=== PATIENT | male | born 1970 | race Two or more races ===

== ENCOUNTER 2017-08-11 09:17 | Inpatient (IN) | payer OTHER ==
[2017-08-11 09:44] VITALS: BMI 24.3
--- NOTE | 2017-08-11 14:38 | HP ---
COWS - Scale Resting Pulse: 1= [place] 81-100 Sweatin= Chills/Flushing Restless Observation: 3= Extraneous Movement Pupil Size: 2= Moderately Dilated Bone or Joint Aches: 4=Acute Joint/Muscle Pain Runny Nose/ Eye Tearin= Runny Nose/Eyes GI Upset > 30mins: 3= Vomiting/Diarrhea Tremor Observation: 1= Tremor [place], Not Seen Yawning Observation: 0= None Anxiety or Irritability: 2=Irritable/Anxious Goose Flesh Skin: 0=Smooth Skin COWS Score: 19 Admission ROS S - HPI Chief Complaint: WITHDRAWAL SX FROM HEROIN Allergies/Adverse Reactions: Allergies Allergy/AdvReac Type Severity Reaction Status Date / Time No Known Allergies Allergy Verified 08/11/17 11:17 History of Present Illness: 46 Y/O H/M WITH A HX OF HEROIN DEPENDENCE SEEKING DETOX TX. PT WAS REFERRED TO DETOX FROM [facility] WHERE HE HAD BEEN EARLIER TODAY. HX OF HEP C AND HIV + WITH NO MEDS. REPORTS PMD IS DR EMILY MADSEN AT [address] [place], [place]. 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 Loss EENT: reports: Blurred Vision, Tearing, Nose Congestion, Dental Problems ( MISSING TEETH) Respiratory: reports: No Symptoms reported Cardiac: reports: Lightheadedness GI: reports: Diarrhea, Nausea, Poor Appetite, Poor Fluid Intake, Vomiting : reports: Dysuria Musculoskeletal: reports: Back Pain, Joint Pain, Muscle Pain Integumentary: reports: Bruising (IVD INJ. SITES ON BOTH ELBOWS) Neuro: reports: Headache, Tremors, Dizziness Endocrine: reports: No Symptoms Reported Hematology: reports: No Symptoms Reported Psychiatric: reports: Orientated x3 (ALERT ORIENTED TO SELF.), Anxious Other Systems: Reviewed and Negative Patient History - Patient Medical History Hx Anemia: No Hx Asthma: No Hx Chronic Obstructive Pulmonary Disease (COPD): No Hx Cardiac Disorders: No Hx Hypertension: No Hx Hypercholesterolemia: No HX Cerebrovascular Accident: No Hx Seizures: No Hx Diabetes: Yes (Insulin) Hx Gastrointestinal Disorders: No Hx Genitourinary Disorders: No Hx Sexually Transmitted Disorders: No Hx Renal Disease (ESRD): No Hx Thyroid Disease: No Hx Human Immunodeficiency Virus (HIV): Yes (NO MEDS) Hx Hepatitis C: Yes (NOT TREATED) Hx Depression: Yes (ON MEDS) Hx Suicide Attempt: Yes (Tried to cut himself 5 yrs ago;DENIES CURRENT S/H/I) Hx Schizophrenia: No - Patient Surgical History Past Surgical History: No Hx Neurologic Surgery: No Hx Cataract Extraction: No Hx Cardiac Surgery: No Hx Lung Surgery: No Hx Breast Surgery: No Hx Breast Biopsy: No Hx Abdominal Surgery: No Hx Appendectomy: No Hx Cholecystectomy: No Hx Genitourinary Surgery: No Hx Orthopedic Surgery: No Anesthesia Reaction: No - PPD History Previous Implant?: Yes Documented Results: Negative w/o proof Implanted On Prior [facility] Admission?: No - Reproductive History Patient is a Female of Child Bearing Age (11 -55 yrs old): No (MALE) - Smoking Cessation Smoking history: Current every day smoker Have you smoked in the past 12 months: Yes Aproximately how many cigarettes per day: 20 Hx Chewing Tobacco Use: No Initiated information on smoking cessation: Yes 'Breaking Loose' booklet given: 08/11/17 - Substance & Tx. History Hx Alcohol Use: No Hx Substance Use: Yes (HEROIN) Substance Use Type: Heroin Hx Substance Use Treatment: Yes (PREVIOUS [place] [facility]) - Substances Abused Heroin Route: Injection Frequency: Daily Amount used: 20 bags Age of first use: 29 Date of Last Use: 08/10/17 Family Disease History - Family Disease History Family History: Denies Admission Physical Exam BHS - Vital Signs Vital Signs: Vital Signs - 24 hr 08/11/17 09:43 Temperature 97.1 F L Pulse Rate 83 Respiratory 20 Rate Blood Pressure 101/68 - Physical General Appearance: Yes: Moderate Distress, Irritable, Anxious HEENTM: Yes: EOMI, Normocephalic, BRETT, Pharynx Normal Respiratory: Yes: Chest Non-Tender, Lungs Clear, Normal Breath Sounds, No Respiratory Distress Neck: Yes: No masses,lesions,Nodules, Supple, Trachea in good position Breast: Yes: Breast Exam Deferred Cardiology: Yes: Regular Rhythm, Regular Rate, S1, S2 Abdominal: Yes: Normal Bowel Sounds, Non Tender, Flat, Soft Genitourinary: Yes: Other (N/C) Musculoskeletal: Yes: full range of Motion, Gait Steady Extremities: Yes: Normal Range of Motion, Non-Tender Neurological: Yes: pearler II-XII NML intact, Fully Oriented (TO SELF.), Alert, Motor Strength 5/5 Integumentary: Yes: Normal Color, Dry, Warm Lymphatic: Yes: Within Normal Limits - Diagnostic (1) Opioid dependence with withdrawal Current Visit: Yes Status: Acute (2) Diabetes mellitus Current Visit: Yes Status: Chronic (3) History of hepatitis C Current Visit: Yes Status: Chronic (4) HIV (human immunodeficiency virus infection) Current Visit: Yes Status: Chronic Comment: NO MEDS Cleared for Admission [facility] - Detox or Rehab [facility] Level of Care: Medically Managed Detox Regimen/Protocol: Methadone [facility] Breath Alcohol Content Breath Alcohol Content: 0 Urine Drug Screen - Results Drug Screen Negative: No Urine Drug Screen Results: THC-Marijuana, OPI-Opiates, BZO-Benzodiazepines
[2017-08-11] MEDS ORDERED: LOPERAMIDE HCL 2 MG CAPSULE PO PRN (14:56)
[2017-08-11] MEDS ORDERED: MENTHOL/PHENOL 1 EACH UD MM PRN (14:56)
[2017-08-11] MEDS ORDERED: NICOTINE POLACRILEX 4 MG GUM BUC PRN (14:56)
[2017-08-11] MEDS ORDERED: MAGNESIUM HYDROX 2400MG/30ML ORAL SUSPENSION 30 ML CUP PO PRN (14:56)
[2017-08-11] MEDS ORDERED: P-EPHED 60MG/TRIPROLIDI 2.5MG TABLET PO PRN (14:56)
[2017-08-11] MEDS ORDERED: MAGNESIUM CITRATE 300 ML BOTTLE PO PRN (14:56)
[2017-08-11] MEDS ORDERED: ACETAMINOPHEN 325 MG TABLET (FP) PO PRN (14:56)
[2017-08-11] MEDS ORDERED: MAG HYDROX/AL HYDROX/SIMETH 30 ML UNIT-DOSE CUP PO PRN (14:56)
[2017-08-11] MEDS ORDERED: METHADONE HCL 10 MG TABLET (FOR DETOX USE ONLY) PO ONE ×2 (15:35→23:00)
[2017-08-11] MEDS: diazePAM 5 MG TABLET PO PRN ×2 (15:40→21:13)
[2017-08-11] MEDS: NICOTINE 21 MG/24 HOURS TOPICAL PATCH TD SCH (15:58)
[2017-08-11] MEDS: INSULIN SLIDING SCALE (NOVOLOG) 1 VIAL SQ SCH (17:14)
[2017-08-11] MEDS: guaiFENesin/D-METHORPHAN HB 10 ML UNIT-DOSE CUPS PO PRN (19:01)
[2017-08-11] MEDS: hydrOXYzine PAMOATE 50 MG CAPSULE (FP) PO PRN (19:01)
[2017-08-11] MEDS: IBUPROFEN 400 MG TABLET (FP) PO PRN (19:01)
[2017-08-11] MEDS: CYCLOBENZAPRINE HCL 10 MG TABLET (FP) PO SCH (21:13)
[2017-08-11] MEDS: THIAMINE HCL 100 MG TABLET (FP) PO SCH (21:13)
[2017-08-11] MEDS: INSULIN DETEMIR 100 UNITS/ML MDV SQ SCH (22:05)
[2017-08-11 23:58] LABS: URINE APPEARANCE CLEAR; URINE BILIRUBIN NEGATIVE (NEGATIVE); URINE BLOOD NEGATIVE (NEGATIVE); URINE COLOR YELLOW; URINE GLUCOSE (UA) NEGATIVE (NEGATIVE); URINE KETONE NEGATIVE (NEGATIVE); URINE LEUK ESTERASE NEGATIVE (NEGATIVE); URINE NITRITE NEGATIVE (NEGATIVE); URINE PROTEIN NEGATIVE (NEGATIVE)
[2017-08-12] MEDS: CYCLOBENZAPRINE HCL 10 MG TABLET (FP) PO SCH ×3 (06:36→22:05)
[2017-08-12] MEDS: INSULIN SLIDING SCALE (NOVOLOG) 1 VIAL SQ SCH ×2 (06:38→18:15)
--- NOTE | 2017-08-12 07:56 | EKG ---
Test Reason : Blood Pressure : / mmHG Vent. Rate : 066 BPM Atrial Rate : 066 BPM P-R Int : 158 ms QRS Dur : 082 ms QT Int : 418 ms P-R-T Axes : 026 054 057 degrees QTc Int : 438 ms NORMAL SINUS RHYTHM NORMAL ECG NO PREVIOUS ECGS AVAILABLE Confirmed by ADRIANA MACIAS, ALEX ([id number]) on 08/12/2017 7:56:06 AM Referred By: Confirmed By:ALEX WRIGHT MD
[2017-08-12] MEDS ORDERED: HALOPERIDOL DECANOATE 100 MG/ML IM ONE (09:21)
--- NOTE | 2017-08-12 09:38 | CONSULT ---
[facility] Psychiatric Consult - Data Date of interview: 08/12/17 Admission source: [facility] Identifying data: This is 46 years old male with psychiatric hospitalization history, intoxicated with Opioids and Nicotine Substance Abuse History: - Smoking Cessation. Smoking history: Current every day smoker. Have you smoked in the past 12 months: Yes. Aproximately how many cigarettes per day: 20. Hx Chewing Tobacco Use: No. Initiated information on smoking cessation: Yes. 'Breaking Loose' booklet given: 08/11/17. - Substance & Tx. History. Hx Alcohol Use: No. Hx Substance Use: Yes (HEROIN). Substance Use Type: Heroin. Hx Substance Use Treatment: Yes (PREVIOUS [place] [facility]). - Substances Abused. Heroin. Route: Injection. Frequency: Daily. Amount used: 20 bags. Age of first use: 29. Date of Last Use: 08/10/17 Medical History: DM, HIV+, HepC+, Psychiatric History: ATOENT REPORTS HISTORY OF sCHIZOPHRENIA WITH MOST RECENT PSYCHIATRIC ADSMISSIOJN [id number], REPORTS TAKING PRIOR TO ADMISSION: HALDOL DECANOATE 50JMG IM WITH LAST INJECTIONS ON 06/30/2017, AND AMBIEN 10MG PO QHS. RTeports no suicisdal history Physical/Sexual Abuse/Trauma History: Denies Additional Comment: HALDOL DECANOATE 50JMG IM WITH LAST INJECTIONS ON 06/30/2017 , AND AMBIEN 10MG PO QHS Mental Status Exam - Mental Status Exam Alert and Oriented to: Person Cognitive Function: Fair Patient Appearance: Unkempt Mood: Anxious Affect: Mood Congruent Patient Behavior: Cooperative Speech Pattern: Delayed Voice Loudness: Mildly Soft/Quiet Thought Process: Goal Oriented Thought Disorder: Being Controlled Hallucinations: Denies Suicidal Ideation: Denies Homicidal Ideation: Denies Insight/Judgement: Fair Sleep: Difficulty falling asleep Appetite: Good Muscle strength/Tone: Mild Hypotonicity Gait/Station: Shuffling Additional Comments: HALDOL DECANOATE 50JMG IM WITH LAST INJECTIONS ON 2016, AND AMBIEN 10MG PO QHS Psychiatric Findings - Problem List ([place] 1, 2,3) (1) Nicotine dependence Current Visit: Yes Status: Acute (2) Psychotic disorder Current Visit: Yes Status: Acute (3) Opioid dependence with withdrawal Current Visit: Yes Status: Acute - Initial Treatment Plan Initial Treatment Plan: HALDOL DECANOATE 50JMG IM WITH LAST INJECTIONS ON 2016, AND AMBIEN 10MG PO QHS
[2017-08-12] MEDS ORDERED: METHADONE HCL 10 MG TABLET (FOR DETOX USE ONLY) PO ONE (10:00)
[2017-08-12 10:27] LABS: CHLORIDE 100 mmol/L (98-107); POTASSIUM 4.6 mmol/L (3.5-5.1); SODIUM 137 mmol/L (136-145)
[2017-08-12 10:35] LABS: HEMATOCRIT 41.4 % (35.4-49); HEMOGLOBIN 13.4 GM/dL (11.7-16.9); MCH 29.2 pg (25.7-33.7); MCHC 32.4 g/dl (32.0-35.9); MEAN CELL VOLUME 90.2 fl (80-96); MEAN PLT VOLUME 9.6 fl (7.5-11.1); PLATELET COUNT 137 K/MM3 (134-434); RBC 4.58 M/mm3 (4.00-5.60); RDW 14.3 % (11.9-15.9)
[2017-08-12] MEDS: PRENATAL VITAMINS W/ FOLIC ACID TABLET (FP) PO SCH (10:54)
[2017-08-12] MEDS: NICOTINE 21 MG/24 HOURS TOPICAL PATCH TD SCH (10:55)
[2017-08-12] MEDS: diazePAM 5 MG TABLET PO PRN ×2 (10:55→14:35)
[2017-08-12] MEDS: IBUPROFEN 400 MG TABLET (FP) PO PRN (10:57)
[2017-08-12 11:37] LABS: ALBUMIN 3.8 g/dl (3.4-5.0); ALK PHOS 74 U/L (45-117); ANION GAP 8 (8-16); BILIRUBIN,TOTAL 0.8 mg/dL (0.2-1.0); BLOOD UREA NITROGEN 7 mg/dL (7-18); CO2 29 mmol/L (21-32); CREATININE 0.9 mg/dL (0.7-1.3); GLUCOSE,RANDOM 217 mg/dL (74-106); SGOT/AST 107 U/L (15-37); TOT PROT 8.7 g/dl (6.4-8.2)
[2017-08-12 12:54] LABS: SGPT/ALT 123 U/L (12-78)
--- NOTE | 2017-08-12 15:16 | PN ---
BHS COWS - Scale Resting Pulse: 1= [place] 81-100 Sweatin= Chills/Flushing Restless Observation: 1= Difficult to Sit Still Pupil Size: 1= Pupils >than Normal Bone or Joint Aches: 2= Severe Diffuse Aches Runny Nose/ Eye Tearin= Nasal Congestion GI Upset > 30mins: 2= Nausea/Diarrhea Tremor Observation of Outstretched Hands: 1= Tremor [employer], Not Seen Yawning Observation: 0= None Anxiety or Irritability: 0= None Goose Flesh Skin: 0=Smooth Skin COWS Score: 10 BHS Progress Note (SOAP) Subjective: IS, sweats , shakes , nausea Objective: 08/12/17 15:15 Vital Signs Temperature 98.1 F 08/12/17 13:13 Pulse Rate 86 08/12/17 13:13 Respiratory Rate 20 08/12/17 13:13 Blood Pressure 111/79 08/12/17 13:13 O2 Sat by Pulse Oximetry (%) Laboratory Tests 08/11/17 08/11/17 08/11/17 11:27 16:26 20:45 WBC RBC Hgb Hct MCV MCH MCHC RDW Plt Count MPV Sodium Potassium Chloride Carbon Dioxide Anion Gap BUN Creatinine Creat Clearance w eGFR POC Glucometer 247 196 Random Glucose Calcium Total Bilirubin AST ALT Alkaline Phosphatase Total Protein Albumin Urine Color Yellow Urine Appearance Clear Urine pH 8.0 Ur Specific [place] 1.013 Urine Protein Negative Urine Glucose (UA) Negative Urine Ketones Negative Urine Blood Negative Urine Nitrite Negative Urine Bilirubin Negative Urine Urobilinogen 2.0 Ur Leukocyte Esterase Negative RPR Titer 08/11/17 08/12/17 08/12/17 21:11 05:45 05:45 WBC 3.0 L RBC 4.58 Hgb 13.4 Hct 41.4 MCV 90.2 MCH 29.2 MCHC 32.4 RDW 14.3 Plt Count 137 MPV 9.6 Sodium 137 Potassium 4.6 Chloride 100 Carbon Dioxide 29 Anion Gap 8 BUN 7 Creatinine 0.9 Creat Clearance w eGFR > 60 POC Glucometer 137 Random Glucose 217 H Calcium 9.0 Total Bilirubin 0.8 AST 107 H ALT 123 H Alkaline Phosphatase 74 Total Protein 8.7 H Albumin 3.8 Urine Color Urine Appearance Urine pH Ur Specific [place] Urine Protein Urine Glucose (UA) Urine Ketones Urine Blood Urine Nitrite Urine Bilirubin Urine Urobilinogen Ur Leukocyte Esterase RPR Titer 08/12/17 08/12/17 05:45 06:27 WBC RBC Hgb Hct MCV MCH MCHC RDW Plt Count MPV Sodium Potassium Chloride Carbon Dioxide Anion Gap BUN Creatinine Creat Clearance w eGFR POC Glucometer 88 Random Glucose Calcium Total Bilirubin AST ALT Alkaline Phosphatase Total Protein Albumin Urine Color Urine Appearance Urine pH Ur Specific [place] Urine Protein Urine Glucose (UA) Urine Ketones Urine Blood Urine Nitrite Urine Bilirubin Urine Urobilinogen Ur Leukocyte Esterase RPR Titer Nonreactive pt lying in bed aox3 appearing uncomfortable Assessment: 08/12/17 15:16 withdrawal ss's dm hiv 08/12/17 15:17 Plan: cont detox increase fluids glucerna bid
--- NOTE | 2017-08-12 17:06 | PN ---
[facility] Progress Note Note: Psychiatric Nurse Practitioner note: Pt. admitted to detox for heroin dependence. Pt. reports receiving Haloperidol deconoate 50mg/ml vial and reports most recently receiving his deconoate injection on 06/30/2017. As per pharmacy claims patient is prescribed Haloperidol deconoate 100mg/ml vial. Pts. pharmacy called at [phone] and able to speak to pharmacist Nathalie which confirmed patient is prescribed haloperidol deconoate 100mg/ml. As per pharmacist patient picked up his haloperidol deconoate on 08/03/2017. Upon further evaluation, two vials of haldol deconoate of 100mg/ml was found in patient's belongings (one filled on and another on 08/03/2017). Pt. is unreliable and a poor historian. Case discussed with collaborating physician Dr. Coppola. Pt. will be started on haldol 5mg BID and cogentin 1mg qhs. Verbal consent given. Pt. agreeable with plan. Pt. instructed to follow up with his outpatient psychiatrist after discharge.
[2017-08-12] MEDS ORDERED: INSULIN (NOVOLOG) ASPART 100 UNITS/ML 10ML VIAL ONE (17:39)
[2017-08-12] MEDS: HALOPERIDOL 5 MG TABLET (FP) PO SCH (22:05)
[2017-08-12] MEDS: BENZTROPINE MESYLATE 1 MG TABLET (FP) PO SCH (22:06)
[2017-08-12] MEDS: THIAMINE HCL 100 MG TABLET (FP) PO SCH (22:06)
[2017-08-12] MEDS: INSULIN DETEMIR 100 UNITS/ML MDV SQ SCH (22:17)
[2017-08-13 01:05] LABS: SICKLE CELL SCREEN NEGATIVE (NEGATIVE)
[2017-08-13] MEDS: CYCLOBENZAPRINE HCL 10 MG TABLET (FP) PO SCH ×3 (06:12→21:21)
[2017-08-13] MEDS: diazePAM 5 MG TABLET PO PRN ×2 (06:20→21:21)
[2017-08-13] MEDS: INSULIN SLIDING SCALE (NOVOLOG) 1 VIAL SQ SCH ×2 (06:21→18:27)
[2017-08-13] MEDS ORDERED: METHADONE HCL 5 MG TABLET (FOR DETOX USE ONLY) PO ONE (10:00)
[2017-08-13 10:13] LABS: SGOT/AST 86 U/L (15-37); SGPT/ALT 113 U/L (12-78)
[2017-08-13] MEDS: PRENATAL VITAMINS W/ FOLIC ACID TABLET (FP) PO SCH (10:49)
[2017-08-13] MEDS: HALOPERIDOL 5 MG TABLET (FP) PO SCH ×2 (10:49→21:22)
[2017-08-13] MEDS: NICOTINE 21 MG/24 HOURS TOPICAL PATCH TD SCH (10:50)
--- NOTE | 2017-08-13 11:24 | PN ---
BHS COWS - Scale Resting Pulse: 1= [place] 81-100 Sweatin= Chills/Flushing Restless Observation: 0= Sits Still Pupil Size: 0= Normal to Room Light Bone or Joint Aches: 1= Mild Discomfort Runny Nose/ Eye Tearin= Nasal Congestion GI Upset > 30mins: 1= Stomach Cramp Tremor Observation of Outstretched Hands: 1= Tremor [place], Not Seen Yawning Observation: 1= 1-2x During Session Anxiety or Irritability: 1=Feels Anxious/Irritable Goose Flesh Skin: 0=Smooth Skin COWS Score: 8 BHS Progress Note (SOAP) Subjective: general body ache sweat agitation restlessness Objective: 08/13/17 11:22 Vital Signs Temperature 97.7 F 08/13/17 09:38 Pulse Rate 86 08/13/17 09:38 Respiratory Rate 18 08/13/17 09:38 Blood Pressure 94/55 08/13/17 09:38 O2 Sat by Pulse Oximetry (%) Laboratory Last Values WBC 3.0 K/mm3 (4.0-10.0) L 08/12/17 05:45 RBC 4.58 M/mm3 (4.00-5.60) 08/12/17 05:45 Hgb 13.4 GM/dL (11.7-16.9) 08/12/17 05:45 Hct 41.4 % (35.4-49) 08/12/17 05:45 MCV 90.2 fl (80-96) 08/12/17 05:45 MCH 29.2 pg (25.7-33.7) 08/12/17 05:45 MCHC 32.4 g/dl (32.0-35.9) 08/12/17 05:45 RDW 14.3 % (11.9-15.9) 08/12/17 05:45 Plt Count 137 K/MM3 (134-434) 08/12/17 05:45 MPV 9.6 fl (7.5-11.1) 08/12/17 05:45 Sickle Cell Screen Negative (NEGATIVE) 08/12/17 05:45 Sodium 137 mmol/L (136-145) 08/12/17 05:45 Potassium 4.6 mmol/L (3.5-5.1) 08/12/17 05:45 Chloride 100 mmol/L (98-107) 08/12/17 05:45 Carbon Dioxide 29 mmol/L (21-32) 08/12/17 05:45 Anion Gap 8 (8-16) 08/12/17 05:45 BUN 7 mg/dL (7-18) 08/12/17 05:45 Creatinine 0.9 mg/dL (0.7-1.3) 08/12/17 05:45 Creat Clearance w eGFR > 60 (>60) 08/12/17 05:45 POC Glucometer 117 UNITS (80-120) 08/13/17 06:18 Random Glucose 217 mg/dL (74-106) H 08/12/17 05:45 Calcium 9.0 mg/dL (8.5-10.1) 08/12/17 05:45 Total Bilirubin 0.8 mg/dL (0.2-1.0) 08/12/17 05:45 AST 86 U/L (15-37) H 08/13/17 07:00 ALT 113 U/L (12-78) H 08/13/17 07:00 Alkaline Phosphatase 74 U/L (45-117) 08/12/17 05:45 Total Protein 8.7 g/dl (6.4-8.2) H 08/12/17 05:45 Albumin 3.8 g/dl (3.4-5.0) 08/12/17 05:45 Urine Color Yellow 08/11/17 20:45 Urine Appearance Clear 08/11/17 20:45 Urine pH 8.0 (5.0-8.0) 08/11/17 20:45 Ur Specific [place] 1.013 (1.001-1.035) 08/11/17 20:45 Urine Protein Negative (NEGATIVE) 08/11/17 20:45 Urine Glucose (UA) Negative (NEGATIVE) 08/11/17 20:45 Urine Ketones Negative (NEGATIVE) 08/11/17 20:45 Urine Blood Negative (NEGATIVE) 08/11/17 20:45 Urine Nitrite Negative (NEGATIVE) 08/11/17 20:45 Urine Bilirubin Negative (NEGATIVE) 08/11/17 20:45 Urine Urobilinogen 2.0 mg/dL (0.2-1.0) 08/11/17 20:45 Ur Leukocyte Esterase Negative (NEGATIVE) 08/11/17 20:45 RPR Titer Nonreactive (NONREACTIVE) 08/12/17 05:45 lab noted Assessment: 08/13/17 11:23 withdrawal sx Plan: continue detox
[2017-08-13] MEDS: guaiFENesin/D-METHORPHAN HB 10 ML UNIT-DOSE CUPS PO PRN (21:20)
[2017-08-13] MEDS: ZOLPIDEM TARTRATE 10 MG TABLET (PARK CARE ONLY) PO PRN (21:21)
[2017-08-13] MEDS: BENZTROPINE MESYLATE 1 MG TABLET (FP) PO SCH (21:22)
[2017-08-13] MEDS: THIAMINE HCL 100 MG TABLET (FP) PO SCH (21:23)
[2017-08-13] MEDS: INSULIN DETEMIR 100 UNITS/ML MDV SQ SCH (21:26)
[2017-08-14] MEDS: CYCLOBENZAPRINE HCL 10 MG TABLET (FP) PO SCH ×3 (07:01→22:10)
[2017-08-14] MEDS: INSULIN SLIDING SCALE (NOVOLOG) 1 VIAL SQ SCH ×2 (07:03→18:10)
[2017-08-14] MEDS ORDERED: METHADONE HCL 5 MG TABLET (FOR DETOX USE ONLY) PO ONE (10:00)
--- NOTE | 2017-08-14 10:25 | PN ---
BHS Progress Note (SOAP) Subjective: nausea, sweats, interrupted sleep, anxiety, tremors Objective: 08/14/17 10:24 Vital Signs - 8 hr 08/14/17 08/14/17 08/14/17 03:30 06:55 09:28 Temperature 97.2 F L 98.1 F Pulse Rate 68 110 H Respiratory 18 16 20 Rate Blood Pressure 90/53 98/72 Laboratory Tests 08/11/17 08/11/17 08/11/17 11:27 16:26 20:45 WBC RBC Hgb Hct MCV MCH MCHC RDW Plt Count MPV Sickle Cell Screen Sodium Potassium Chloride Carbon Dioxide Anion Gap BUN Creatinine Creat Clearance w eGFR POC Glucometer 247 196 Random Glucose Calcium Total Bilirubin AST ALT Alkaline Phosphatase Total Protein Albumin Urine Color Yellow Urine Appearance Clear Urine pH 8.0 Ur Specific [place] 1.013 Urine Protein Negative Urine Glucose (UA) Negative Urine Ketones Negative Urine Blood Negative Urine Nitrite Negative Urine Bilirubin Negative Urine Urobilinogen 2.0 Ur Leukocyte Esterase Negative RPR Titer 08/11/17 08/12/17 08/12/17 21:11 05:45 05:45 WBC 3.0 L RBC 4.58 Hgb 13.4 Hct 41.4 MCV 90.2 MCH 29.2 MCHC 32.4 RDW 14.3 Plt Count 137 MPV 9.6 Sickle Cell Screen Negative Sodium 137 Potassium 4.6 Chloride 100 Carbon Dioxide 29 Anion Gap 8 BUN 7 Creatinine 0.9 Creat Clearance w eGFR > 60 POC Glucometer 137 Random Glucose 217 H Calcium 9.0 Total Bilirubin 0.8 AST 107 H ALT 123 H Alkaline Phosphatase 74 Total Protein 8.7 H Albumin 3.8 Urine Color Urine Appearance Urine pH Ur Specific [place] Urine Protein Urine Glucose (UA) Urine Ketones Urine Blood Urine Nitrite Urine Bilirubin Urine Urobilinogen Ur Leukocyte Esterase RPR Titer 08/12/17 08/12/17 08/12/17 05:45 06:27 16:49 WBC RBC Hgb Hct MCV MCH MCHC RDW Plt Count MPV Sickle Cell Screen Sodium Potassium Chloride Carbon Dioxide Anion Gap BUN Creatinine Creat Clearance w eGFR POC Glucometer 88 225 Random Glucose Calcium Total Bilirubin AST ALT Alkaline Phosphatase Total Protein Albumin Urine Color Urine Appearance Urine pH Ur Specific [place] Urine Protein Urine Glucose (UA) Urine Ketones Urine Blood Urine Nitrite Urine Bilirubin Urine Urobilinogen Ur Leukocyte Esterase RPR Titer Nonreactive 08/12/17 08/13/17 08/13/17 21:32 06:18 07:00 WBC RBC Hgb Hct MCV MCH MCHC RDW Plt Count MPV Sickle Cell Screen Sodium Potassium Chloride Carbon Dioxide Anion Gap BUN Creatinine Creat Clearance w eGFR POC Glucometer 245 117 Random Glucose Calcium Total Bilirubin AST 86 H ALT 113 H Alkaline Phosphatase Total Protein Albumin Urine Color Urine Appearance Urine pH Ur Specific [place] Urine Protein Urine Glucose (UA) Urine Ketones Urine Blood Urine Nitrite Urine Bilirubin Urine Urobilinogen Ur Leukocyte Esterase RPR Titer 08/13/17 08/13/17 08/14/17 16:52 21:28 06:37 WBC RBC Hgb Hct MCV MCH MCHC RDW Plt Count MPV Sickle Cell Screen Sodium Potassium Chloride Carbon Dioxide Anion Gap BUN Creatinine Creat Clearance w eGFR POC Glucometer 198 278 129 Random Glucose Calcium Total Bilirubin AST ALT Alkaline Phosphatase Total Protein Albumin Urine Color Urine Appearance Urine pH Ur Specific [place] Urine Protein Urine Glucose (UA) Urine Ketones Urine Blood Urine Nitrite Urine Bilirubin Urine Urobilinogen Ur Leukocyte Esterase RPR Titer Assessment: 08/14/17 10:25 withdrwal sx, cont detox, fluids, encoruage ambualtion
[2017-08-14] MEDS: HALOPERIDOL 5 MG TABLET (FP) PO SCH ×2 (10:41→22:10)
[2017-08-14] MEDS: diazePAM 5 MG TABLET PO PRN ×2 (10:41→14:43)
[2017-08-14] MEDS: PRENATAL VITAMINS W/ FOLIC ACID TABLET (FP) PO SCH (10:41)
[2017-08-14] MEDS: NICOTINE 21 MG/24 HOURS TOPICAL PATCH TD SCH (10:41)
[2017-08-14] MEDS ORDERED: INSULIN (NOVOLOG) ASPART 100 UNITS/ML 10ML VIAL ONE (17:58)
[2017-08-14] MEDS: hydrOXYzine PAMOATE 50 MG CAPSULE (FP) PO PRN (18:09)
[2017-08-14] MEDS: ZOLPIDEM TARTRATE 10 MG TABLET (PARK CARE ONLY) PO PRN (22:10)
[2017-08-14] MEDS: IBUPROFEN 400 MG TABLET (FP) PO PRN (22:10)
[2017-08-14] MEDS: THIAMINE HCL 100 MG TABLET (FP) PO SCH (22:10)
[2017-08-14] MEDS: BENZTROPINE MESYLATE 1 MG TABLET (FP) PO SCH (22:10)
[2017-08-14] MEDS: INSULIN DETEMIR 100 UNITS/ML MDV SQ SCH (22:12)
[2017-08-15] MEDS: CYCLOBENZAPRINE HCL 10 MG TABLET (FP) PO SCH ×3 (06:03→22:11)
[2017-08-15] MEDS: INSULIN SLIDING SCALE (NOVOLOG) 1 VIAL SQ SCH ×2 (07:31→17:16)
[2017-08-15] MEDS: PRENATAL VITAMINS W/ FOLIC ACID TABLET (FP) PO SCH (10:00)
[2017-08-15] MEDS ORDERED: METHADONE HCL 10 MG TABLET (FOR DETOX USE ONLY) PO ONE (10:00)
[2017-08-15] MEDS: HALOPERIDOL 5 MG TABLET (FP) PO SCH ×2 (11:00→22:11)
[2017-08-15] MEDS: NICOTINE 21 MG/24 HOURS TOPICAL PATCH TD SCH (11:00)
--- NOTE | 2017-08-15 14:03 | PN ---
BHS Progress Note (SOAP) Subjective: sleepy shakes nausea Objective: 08/15/17 14:02 Vital Signs Temperature 98.2 F 08/15/17 11:17 Pulse Rate 94 H 08/15/17 11:17 Respiratory Rate 20 08/15/17 11:17 Blood Pressure 96/60 08/15/17 11:17 O2 Sat by Pulse Oximetry (%) Assessment: 08/15/17 14:02 withdrawal sx Plan: continue detox
[2017-08-15] MEDS ORDERED: INSULIN (NOVOLOG) ASPART 100 UNITS/ML 10ML VIAL ONE (17:16)
[2017-08-15] MEDS: THIAMINE HCL 100 MG TABLET (FP) PO SCH (22:11)
[2017-08-15] MEDS: hydrOXYzine PAMOATE 50 MG CAPSULE (FP) PO PRN (22:11)
[2017-08-15] MEDS: BENZTROPINE MESYLATE 1 MG TABLET (FP) PO SCH (22:12)
[2017-08-15] MEDS: INSULIN DETEMIR 100 UNITS/ML MDV SQ SCH (22:12)
[2017-08-16] MEDS ORDERED: METHADONE HCL 5 MG TABLET (FOR DETOX USE ONLY) PO ONE (06:00)
[2017-08-16] MEDS: CYCLOBENZAPRINE HCL 10 MG TABLET (FP) PO SCH (06:17)
[2017-08-16] MEDS: IBUPROFEN 400 MG TABLET (FP) PO PRN (07:36)
[2017-08-16] MEDS: INSULIN SLIDING SCALE (NOVOLOG) 1 VIAL SQ SCH (07:37)
[2017-08-16 10:41] VITALS: BP 122/61; PULSE 81; TEMP 98.4
--- NOTE | 2017-08-16 10:48 | DS ---
[facility] Detox Discharge Summary Admission Date: 08/11/17 Discharge Date: 08/16/17 - History Present History: Opioid Dependence - Physical Exam Results Vital Signs: Vital Signs Temperature 98.4 F 08/16/17 10:00 Pulse Rate 81 08/16/17 10:00 Respiratory Rate 18 08/16/17 10:00 Blood Pressure 122/61 08/16/17 10:00 O2 Sat by Pulse Oximetry (%) Pertinent Admission Physical Exam Findings: withdrawal sx Laboratory Last Values WBC 3.0 K/mm3 (4.0-10.0) L 08/12/17 05:45 RBC 4.58 M/mm3 (4.00-5.60) 08/12/17 05:45 Hgb 13.4 GM/dL (11.7-16.9) 08/12/17 05:45 Hct 41.4 % (35.4-49) 08/12/17 05:45 MCV 90.2 fl (80-96) 08/12/17 05:45 MCH 29.2 pg (25.7-33.7) 08/12/17 05:45 MCHC 32.4 g/dl (32.0-35.9) 08/12/17 05:45 RDW 14.3 % (11.9-15.9) 08/12/17 05:45 Plt Count 137 K/MM3 (134-434) 08/12/17 05:45 MPV 9.6 fl (7.5-11.1) 08/12/17 05:45 Sickle Cell Screen Negative (NEGATIVE) 08/12/17 05:45 Sodium 137 mmol/L (136-145) 08/12/17 05:45 Potassium 4.6 mmol/L (3.5-5.1) 08/12/17 05:45 Chloride 100 mmol/L (98-107) 08/12/17 05:45 Carbon Dioxide 29 mmol/L (21-32) 08/12/17 05:45 Anion Gap 8 (8-16) 08/12/17 05:45 BUN 7 mg/dL (7-18) 08/12/17 05:45 Creatinine 0.9 mg/dL (0.7-1.3) 08/12/17 05:45 Creat Clearance w eGFR > 60 (>60) 08/12/17 05:45 POC Glucometer 220 UNITS (80-120) 08/16/17 06:16 Random Glucose 217 mg/dL (74-106) H 08/12/17 05:45 Calcium 9.0 mg/dL (8.5-10.1) 08/12/17 05:45 Total Bilirubin 0.8 mg/dL (0.2-1.0) 08/12/17 05:45 AST 86 U/L (15-37) H 08/13/17 07:00 ALT 113 U/L (12-78) H 08/13/17 07:00 Alkaline Phosphatase 74 U/L (45-117) 08/12/17 05:45 Total Protein 8.7 g/dl (6.4-8.2) H 08/12/17 05:45 Albumin 3.8 g/dl (3.4-5.0) 08/12/17 05:45 Urine Color Yellow 08/11/17 20:45 Urine Appearance Clear 08/11/17 20:45 Urine pH 8.0 (5.0-8.0) 08/11/17 20:45 Ur Specific [place] 1.013 (1.001-1.035) 08/11/17 20:45 Urine Protein Negative (NEGATIVE) 08/11/17 20:45 Urine Glucose (UA) Negative (NEGATIVE) 08/11/17 20:45 Urine Ketones Negative (NEGATIVE) 08/11/17 20:45 Urine Blood Negative (NEGATIVE) 08/11/17 20:45 Urine Nitrite Negative (NEGATIVE) 08/11/17 20:45 Urine Bilirubin Negative (NEGATIVE) 08/11/17 20:45 Urine Urobilinogen 2.0 mg/dL (0.2-1.0) 08/11/17 20:45 Ur Leukocyte Esterase Negative (NEGATIVE) 08/11/17 20:45 RPR Titer Nonreactive (NONREACTIVE) 08/12/17 05:45 lab noted - Treatment Hospital Course: Detox Protocol Followed, Detoxed Safely, Responded well, Discharged Condition Good, Rehab Referral Accepted Patient has Accepted a Rehab Referral to: as per counselor arranged - Medication Discharge Medications: Ambulatory Orders Insulin Glargine,Hum.rec.anlog [Lantus Solostar] 20 unit SQ HS 08/11/17 - Diagnosis (1) HIV (human immunodeficiency virus infection) Current Visit: Yes Status: Chronic (2) Nicotine dependence Current Visit: Yes Status: Acute Qualifiers: Nicotine product type: cigarettes Substance use status: in withdrawal Qualified Code(s): F17.213 - Nicotine dependence, cigarettes, with withdrawal (3) Opioid dependence with withdrawal Current Visit: Yes Status: Acute (4) Diabetes mellitus Current Visit: Yes Status: Chronic Qualifiers: Diabetes mellitus type: type 2 Diabetes mellitus complication status: without complication Diabetes mellitus intermediate project manager insulin use: with intermediate project manager use Qualified Code(s): E11.9 - Type 2 diabetes mellitus without complications ; Z79.4 - superintendent terminal (current) use of insulin; Z79.4 - superintendent terminal (current) use of insulin; Z79.4 - intermediate (current) use of insulin; Z79.4 - superintendent terminal ( current) use of insulin - AMA Did Patient Leave Against Medical Advice: No
== END 2017-08-16 09:00 | disposition home or self-care (01) | DRG 773 ==
LOC: YASAS 09:17 → Y6N 13:32
PROVIDERS: ADMIT Internal Medicine; ATTEND Internal Medicine
PROC: HZ2ZZZZ Detoxification Services for Substance Abuse Treatment (ICD-10-PCS; principal; 2017-08-11)
DX: F11.23 Opioid dependence with withdrawal (principal); F17.213 Nicotine dependence, cigarettes, with withdrawal; F29 Unspecified psychosis not due to a substance or known physiological condition; Z21 Asymptomatic human immunodeficiency virus [HIV] infection status; E11.9 Type 2 diabetes mellitus without complications; B18.2 Chronic viral hepatitis C; Z79.4 Long term (current) use of insulin; Z91.5 Personal history of self-harm
CPT/HCPCS: 36415; 80053; 81003; 82962; 84450; 84460; 85027; 85660; 86593; 93005; 93010

== ENCOUNTER 2019-02-11 20:15 | Inpatient (IN) | payer OTHER | END 2019-02-14 13:40 | disposition left against medical advice (07) | LOC: YASAS 20:15 → Y3N 23:49 ==